=== PATIENT | female | born 1985 | race Caucasian/White ===

== ENCOUNTER → 2019-02-17 | Outpatient (CLI) | payer BC ==
[2016-03-25 19:21] VITALS: BP 118/73
[~2019-02-17] MED LIST: HYDR25SU18 RC
--- NOTE | 2019-02-17 13:13 | RAD ---
MR of the left knee HISTORY: Worsening chronic pain and swelling. TECHNIQUE: Routine multiplanar sequences are obtained. FINDINGS: No evidence of a medial meniscal tear. No evidence of a lateral meniscal tear. The anterior and posterior cruciate ligaments are intact. Medial collateral ligament is intact. Iliotibial band unremarkable. Fibular collateral ligament, biceps femoris tendon and popliteus tendon are intact. The extensor mechanism is intact. Trace joint effusion. No significant Dobbins's cyst. No aggressive bone destruction or acute fracture. Chondromalacia of the patella, mild to moderate with minimal subjacent marrow edema. No bone destruction or acute fracture. Mild soft tissue edema within the upper lateral infrapatellar fat. This is of questionable significance, but can be associated with patellar tracking abnormality. IMPRESSION: 1. No meniscal tear or internal derangement. 2. Chondromalacia of the patella. Electronically signed by: Reynold Torres MD (02/17/2019 1:10 PM) [facility]
== END | disposition home or self-care (01) ==
LOC: MRI 09:09
PROVIDERS: ATTEND Orthopaedic Surgery Sports Medicine
DX: M22.42 Chondromalacia patellae, left knee (principal); R60.0 Localized edema
CPT/HCPCS: 73721